=== PATIENT | female | born 1965 ===

== ENCOUNTER 2016-07-04 09:44 | Outpatient (CLI) | payer BC ==
--- NOTE | 2016-07-04 10:43 | Mammography Report ---
LEFT DIGITAL DIAGNOSTIC MAMMOGRAM : 07/04/16 09:44:00 CLINICAL: Recall for calcifications. COMPARISON:06/19/16 screening mammogram from [facility] FINDINGS: ML and CC magnification views demonstrate a group of amorphous calcifications with a suggestion of layering on the lateral view. No associated mass or architectural distortion. IMPRESSION: Probably benign calcifications. BI-RADS CATEGORY: 3 -- Probably Benign RECOMMENDATION: 6 month follow-up with magnification views. ACR BI-RADS MAMMOGRAPHIC CODES: 0 = Needs additional imaging evaluation; 1 = Negative; 2 = Benign; 3 = Probably benign; 4 = Suspicious; 5 = Malignant; 6 = Known biopsy-proven malignancy COMMENT: 1. Dense breast tissue, i.e., adenosis, fibrocystic changes, etc., may obscure an underlying neoplasm. 2. Approximately 10% of cancers are not detected with mammography. 3. A negative mammography report should not delay biopsy if a clinically suspicious mass is present. COMMENT: Patient follow-up letters are generated by our [employer] application.
== END 2016-07-04 09:45 | disposition home or self-care (01) ==
LOC: SPVWC 09:44
PROVIDERS: ATTEND Surgery
DX: R92.1 Mammographic calcification found on diagnostic imaging of breast (principal); R92.8 Other abnormal and inconclusive findings on diagnostic imaging of breast
CPT/HCPCS: G0206-LT

== ENCOUNTER 2016-07-11 13:08 | Outpatient (CLI) | payer BC ==
--- NOTE | 2016-07-11 16:10 | Mammography Report ---
STEREOTACTIC VACUUM ASSISTED BIOPSY WITH CLIP PLACEMENT LEFT BREAST: 07/11/16 13:08:00 CLINICAL: Calcifications in the upper-outer quadrant. COMPARISON:10/01/16 FINDINGS: Consent for the procedure was obtained. A group of amorphous calcifications in the outer breast was targeted with stereotactic guidance. The skin was prepped with Betadine and anesthetized with 1% lidocaine. 2% lidocaine with epinephrine was injected for deeper anesthesia. 8 gauge Mammotome biopsy was performed from a lateral approach through a small dermatotomy. Prefire and post-fire images demonstrated satisfactory positioning of the probe. Samples were obtained several times around the clock face. Three specimen radiographs were obtained and confirmed satisfactory sampling with removal of a few construction representative calcifications. A clip was placed at the biopsy site and the placement was confirmed with a radiograph. The probe was removed and hemostasis was achieved with mild pressure. A sterile dressing was applied. The patient tolerated the procedure well and there were no apparent complications. Two view mammogram demonstrated concordant position of the biopsy clip. IMPRESSION: Uncomplicated stereotactic biopsy with clip placement left breast.
--- NOTE | 2016-07-11 16:10 | Mammography Report ---
LEFT DIGITAL DIAGNOSTIC MAMMOGRAM: 07/11/16 13:08:00 CLINICAL: For clip placement immediately status post stereotactic biopsy. COMPARISON:07/04/16 FINDINGS: A biopsy clip is now identified in the upper outer breast at the site of previously described calcifications. Calcifications have probably been removed. IMPRESSION: Concordant clip placement status post stereotactic biopsy. BI-RADS CATEGORY: 4--Suspicious Pathology pending.
== END 2016-07-11 13:09 | disposition home or self-care (01) ==
LOC: SPVWC 13:08
PROVIDERS: ATTEND Surgery
DX: R92.1 Mammographic calcification found on diagnostic imaging of breast (principal); R92.8 Other abnormal and inconclusive findings on diagnostic imaging of breast
CPT/HCPCS: 19081; A4648; G0206; 88305